=== PATIENT | male | born 2000 | race Caucasian/White ===

== ENCOUNTER 2023-04-19 00:36 | Emergency (ER) | payer MEDICAID ==
[~2023-04-19] VITALS: Ht 175.3 cm; Wt 112.6 kg
[2023-04-19 00:39] VITALS: BP 142/77; PULSE 120; O2SAT 97
[2023-04-19] MEDS ORDERED: ketorolac trometh inj. 60 MG/2 ML VIAL IM ONE (02:10)
[2023-04-19] MEDS ORDERED: acetaminophen 325mg tablet PO ONE (02:10)
[2023-04-19 02:14] LABS: STREP A SCREEN NEGATIVE (Neg)
[2023-04-19 02:25] VITALS: TEMP 100.6
[2023-04-19 02:41] VITALS: RESP 16
[2023-04-19] MEDS ORDERED: NO HOME MEDS (02:42)
== END 2023-04-19 03:05 | disposition home or self-care (01) ==
LOC: ER 00:38
DX: U07.1 COVID-19 (principal); Z91.010 Allergy to peanuts
CPT/HCPCS: 36415; 87081; 87811; 87880; 96372; 99283; J1885

== ENCOUNTER 2023-04-20 05:20 | Emergency (ER) | payer MEDICAID ==
[~2023-04-20] VITALS: Ht 175.3 cm; Wt 102.4 kg
[~2023-04-20 05:20] MED LIST: NO HOME MEDS
[2023-04-20 05:28] VITALS: BP 141/95; TEMP 98.7
[2023-04-20] MEDS ORDERED: ibuprofen 100 MG/5 ML oral susp PO ONE (06:55)
[2023-04-20] MEDS ORDERED: diphenhydrAMINE 25 MG/10 ML UD oral solution PO ONE (06:55)
[2023-04-20] MEDS ORDERED: dexamethasone sod phosphate 10mg/ml inj IM STA (07:11)
--- NOTE | 2023-04-20 07:15 | NUR ---
dr. kim speaking with patient
[2023-04-20 07:42] VITALS: PULSE 88; RESP 16; O2SAT 95
== END 2023-04-20 07:51 | disposition home or self-care (01) ==
LOC: ER 05:20
DX: U07.1 COVID-19 (principal); J02.9 Acute pharyngitis, unspecified
CPT/HCPCS: 96372; 99284; J1100; Q0163